=== PATIENT | male | born 1960 | race Caucasian/White ===

== ENCOUNTER → 2017-03-27 | Outpatient (CLI) | payer BC ==
--- NOTE | 2017-03-27 09:33 | DIAGNOSTIC IMAGING REPORT ---
CHEST 2 VIEWS ROUTINE HISTORY: 56 years-old Male BRONCHITIS acute cough for 7 weeks. Initial exam. COMPARISON: None available TECHNIQUE: PA and lateral views of the chest FINDINGS: Cardiomediastinal and hilar silhouettes are within normal limits. No pneumothorax, pleural effusion, focal airspace consolidation or overt pulmonary edema. Bones of the chest appear grossly intact. IMPRESSION: No acute cardiopulmonary process. The above report was generated using voice recognition software. It may contain grammatical, syntax or spelling errors. Electronically signed by: Florian Holden M.D. 03/27/2017 9:32 AM Dictated Date/Time: 03/27/2017 9:31 AM
== END | disposition home or self-care (01) ==
LOC: C.RADBC 09:09
PROVIDERS: ATTEND Family Medicine
DX: J40 Bronchitis, not specified as acute or chronic (principal)